=== PATIENT | male | born 1955 | race Caucasian/White ===

== ENCOUNTER → 2024-08-12 14:29 | Outpatient (REF) | payer OTHER, SELFPAY | LOC: RAD 14:29 | PROVIDERS: ATTENDING PHYSICIAN Nurse Practitioner Family; FAMILY PHYSICIAN Internal Medicine | DX: M25.512 Pain in left shoulder (principal); R22.2 Localized swelling, mass and lump, trunk | CPT/HCPCS: 71046 ==

== ENCOUNTER → 2024-08-20 09:53 | Outpatient (REF) | payer OTHER, SELFPAY | LOC: HWRAD 09:53 | PROVIDERS: ATTENDING PHYSICIAN Nurse Practitioner Family | DX: R22.2 Localized swelling, mass and lump, trunk (principal) | CPT/HCPCS: 76604 ==

== ENCOUNTER → 2024-09-03 08:13 | Outpatient (REF) | payer OTHER, SELFPAY | LOC: RAD 08:13 | PROVIDERS: ATTENDING PHYSICIAN Nurse Practitioner Family | DX: R42 Dizziness and giddiness (principal); R09.89 Other specified symptoms and signs involving the circulatory and respiratory systems | CPT/HCPCS: 93880 ==

== ENCOUNTER → 2024-12-03 13:40 | Outpatient (REF) | payer SELFPAY | LOC: HWRAD 13:40 | PROVIDERS: ATTENDING PHYSICIAN Internal Medicine | DX: R93.1 Abnormal findings on diagnostic imaging of heart and coronary circulation (principal) | CPT/HCPCS: 75571 ==